=== PATIENT | male | born 1965 | race Caucasian/White ===

== ENCOUNTER 2021-06-25 13:55 | Emergency (ER) | payer OTHER ==
[~2021-06-25] VITALS: Ht 182.9 cm; Wt 81.6 kg
[2021-06-25] MEDS: IV NS 0.9% 1,000 ML BAG IV ONE (14:20)
--- NOTE | 2021-06-25 14:27 | NUR ---
Patient bibra, from street, wandering around. On room air, breathing evenly and unlabored. connected to the monitor and pulse ox. kept comfortable, will continue to monitor accordingly.
[2021-06-25 14:29] LABS: BASOPHILS # (AUTO) 0.1 K/uL (0.0-0.2); BASOPHILS % (AUTO) 0.9 % (0.0-2.0); EOSINOPHILS % (AUTO) 0.6 % (0.0-6.0); HEMATOCRIT 43 % (39-51); HEMOGLOBIN 14.2 g/dL (13.5-17.5); LYMPHOCYTES # (AUTO) 1.9 K/uL (0.8-4.8); LYMPHOCYTES % (AUTO) 20.4 % (20.0-44.0); MEAN CORPUSCULAR HGB CONC 33 g/dl (31.0-36.0); MEAN CORPUSCULAR VOLUME 95 fL (80-96); MONOCYTES # (AUTO) 0.8 K/uL (0.1-1.30); MONOCYTES % (AUTO) 8.9 % (2.0-12.0); NEUTROPHILS # (AUTO) 6.5 K/uL (1.8-8.9); NEUTROPHILS % (AUTO) 69.2 % (43.0-81.0); PLATELET COUNT (AUTO) 273 K/uL (150-450); WHITE BLOOD COUNT (AUTO) 9.4 K/uL (4.3-11.0)
[2021-06-25 14:31] LABS: BILIRUBIN,URINE Negative (NEGATIVE); COLOR,URINE YELLOW (YELLOW); LEUKOCYTE ESTERASE ,URINE Negative (NEGATIVE); NITRITE, URINE Negative (NEGATIVE); PROTEIN,URINE Negative (NEGATIVE); UGLUCOSE Negative (NEGATIVE); UROBILINOGEN,URINE 0.2 EU/dL (0.2)
[2021-06-25 14:37] LABS: BACTERIA,URINE Rare /HPF (None Seen); MUCUS,URINE Few /LPF (None Seen); RBC,URINE 0-2 /HPF (0-2)
[2021-06-25 14:39] LABS: CALCIUM, SERUM 8.9 mg/dL (8.5-10.1); CARBON DIOXIDE 26 mmol/L (21-32); CHLORIDE 103 mmol/L (98-107); GLUCOSE 112 mg/dL (74-106); POTASSIUM 3.8 mmol/L (3.5-5.1); SODIUM SERUM 143 mmol/L (136-145); UREA NITROGEN, BLOOD 13 mg/dL (7-18)
[2021-06-25 14:56] LABS: ALANINE AMINOTRANSFERASE 29 U/L (12-78); ALBUMIN 4.1 g/dL (3.4-5.0); ALCOHOL, BLOOD 19 mg/dL (0-0); ALKALINE PHOSPHATASE 72 U/L (46-116); ASPARTATE AMINOTRANSFERASE 27 U/L (15-37); BILIRUBIN,DIRECT 0.1 mg/dL (0.0-0.2); BILIRUBIN,TOTAL 0.4 mg/dL (0.2-1.0); TOTAL PROTEIN, SERUM 7.7 g/dL (6.4-8.2)
[2021-06-25 15:00] LABS: ACETAMINOPHEN < 10 ug/ml (10-30)
--- NOTE | 2021-06-25 19:38 | NUR ---
PT PROVIDED WITH WATER
--- NOTE | 2021-06-25 21:05 | NUR ---
PT IS ALERT AND RESPONSIVE. PO CHALLENGE TOLERATED WELL. AMBULATORY W/ STEADY GAITS. REPORTED FEELING GOOD AND WILLING TO LEAVE. PT DENIED SI/ HI. MADE AWARE
[2021-06-25 21:06] VITALS: BP 127/84
--- NOTE | 2021-06-25 21:07 | NUR ---
PT IS MEDICALLY STABLE FOR D/D PER MD. IV removed X3. Catheter intact and site benign. Pressure and 4x4 applied to site. No bleeding noted. Patient discharged to home in stable condition. Written and verbal after care instructions given. Patient verbalizes understanding of instruction.
== END 2021-06-25 21:08 | disposition home or self-care (01) ==
LOC: EDBD 13:58 → ER 13:58
DX: R41.82 Altered mental status, unspecified (principal)
CPT/HCPCS: 36415; 80048; 80076; 80143; 80307; 80320; 81001; 85025; 96360; 99283; J7030; G0480

== ENCOUNTER 2022-08-12 13:45 | Emergency (ER) | payer OTHER ==
[~2022-08-12] VITALS: Ht 182.9 cm; Wt 81.6 kg
[2022-08-12 14:20] VITALS: BP 126/62
--- NOTE | 2022-08-12 14:20 | NUR ---
PT BREANA FROM [employer] FOR ETOH. 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 REQUESTING FOR FOOD. STABLE VITALS. AWAITING MD JORGE.
--- NOTE | 2022-08-12 14:45 | NUR ---
DR DAVIS AT BEDSIDE FOR EVAL
[2022-08-12 15:15] LABS: BASOPHILS # (AUTO) 0.1 K/uL (0.0-0.2); BASOPHILS % (AUTO) 0.7 % (0.0-2.0); HEMATOCRIT 42 % (39-51); HEMOGLOBIN 13.6 g/dL (13.5-17.5); LYMPHOCYTES # (AUTO) 3.4 K/uL (0.8-4.8); LYMPHOCYTES % (AUTO) 31.2 % (20.0-44.0); MEAN CORPUSCULAR HGB CONC 33 g/dl (31.0-36.0); MEAN CORPUSCULAR VOLUME 92 fL (80-96); MONOCYTES # (AUTO) 0.9 K/uL (0.1-1.30); MONOCYTES % (AUTO) 8.4 % (2.0-12.0); NEUTROPHILS # (AUTO) 6.5 K/uL (1.8-8.9); NEUTROPHILS % (AUTO) 58.7 % (43.0-81.0); PLATELET COUNT (AUTO) 368 K/uL (150-450); RED BLOOD CELL COUNT(AUTO) 4.55 MIL/uL (4.5-6.0)
[2022-08-12 15:42] LABS: ALANINE AMINOTRANSFERASE 24 U/L (12-78); ALCOHOL, BLOOD 171 mg/dL (0-0); ALKALINE PHOSPHATASE 78 U/L (46-116); ASPARTATE AMINOTRANSFERASE 21 U/L (15-37); BILIRUBIN,DIRECT 0.1 mg/dL (0.0-0.2); BILIRUBIN,TOTAL 0.3 mg/dL (0.2-1.0); CALCIUM, SERUM 9.2 mg/dL (8.5-10.1); CARBON DIOXIDE 23 mmol/L (21-32); CHLORIDE 102 mmol/L (98-107); GLUCOSE 87 mg/dL (74-106); POTASSIUM 3.5 mmol/L (3.5-5.1); SODIUM SERUM 139 mmol/L (136-145); TOTAL PROTEIN, SERUM 7.8 g/dL (6.4-8.2); UREA NITROGEN, BLOOD 10 mg/dL (7-18)
[2022-08-12 15:56] LABS: ACETAMINOPHEN < 10 ug/ml (10-30)
--- NOTE | 2022-08-12 16:18 | NUR ---
PT NOT AT ASSIGNED ROOM. ELOPED.
== END 2022-08-12 16:20 | disposition left against medical advice (07) ==
LOC: ER 13:46
DX: R45.851 Suicidal ideations (principal); Z20.822 Contact with and (suspected) exposure to COVID-19
CPT/HCPCS: 99285; 85025; 80048; 80076; 36415; 87426; 80143; 80320; C9803; G0480